=== PATIENT | female | born 1980 | race Caucasian/White ===

== ENCOUNTER 2017-11-24 19:43 | Emergency (ER) | payer MEDICAID ==
[~2017-11-24] VITALS: Ht 172.7 cm; Wt 68.0 kg
[2017-11-24] MEDS ORDERED: AMOXICILLIN500 MG PO (21:19)
== END 2017-11-24 21:28 | disposition home or self-care (01) ==
LOC: ED 19:43
DX: A26.0 Cutaneous erysipeloid (principal)
CPT/HCPCS: 85025; 99283